=== PATIENT | female | born 1995 | race Caucasian/White ===

== ENCOUNTER 2017-05-13 15:42 | Emergency (ER) | payer MEDICAID, OTHER ==
[2017-05-13 15:43] VITALS: BMI 29.0
[2017-05-13 16:13] VITALS: O2SAT 100
--- NOTE | 2017-05-13 16:56 | ED PDOC ---
Arrival/HPI - General Chief Complaint: Abnormal Skin Integrity Time Seen by Provider: 05/13/17 16:40 Historian: Patient - History of Present Illness Narrative History of Present Illness (Text): 05/13/17 17:35 21yr old female presents today with pruritic rash to legs, chest, back and abdomen that started today. pt completed amoxicillin yesterday for throat infection while in [place]. pt states she was in [place] for the past 2 weeks. pt denies cp or sob. no abdominal pain. no nv/d/c/. no fever/chills. no sick contacts. pt denies arthralgias. denies dizziness or weakness. pt taking benadryl at home without improvement. Past Medical History - Provider Review Nursing Documentation Reviewed: Yes - Travel History Have you recently traveled outside [place] w/in the past 3 mons?: No If Yes, travel location?: [place] - Past History Past History: No Previous - Infectious Disease Hx of Infectious Diseases: None - Reproductive Menopause: No - Psychiatric Hx Depression: No Hx Emotional Abuse: No Hx Physical Abuse: No Hx Substance Use: No - Past Surgical History Past Surgical History: No Previous - Suicidal Assessment Feels Threatened In Home Enviroment: No Family/Social History - Physician Review Nursing Documentation Reviewed: Yes Family/Social History: Unknown Family HX Smoking Status: Never Smoked Hx Alcohol Use: No Hx Substance Use: No Hx Substance Use Treatment: No Allergies/Home Meds Allergies/Adverse Reactions: Allergies No Known Allergies Allergy (Verified 09/24/13 19:22) Review of Systems - Review of Systems Constitutional: absent: Fatigue, Fevers ENT: absent: Rhinorrhea, Sinus Congestion Respiratory: absent: SOB, Cough Cardiovascular: absent: Chest Pain, Palpitations Gastrointestinal: absent: Abdominal Pain, Diarrhea, Nausea, Vomiting Musculoskeletal: absent: Arthralgias, Back Pain, Neck Pain Skin: Rash, Pruritis Neurological: absent: Headache, Dizziness Psychiatric: absent: Anxiety, Depression Physical Exam Vital Signs Reviewed: Yes Vital Signs Temp Pulse Resp BP Pulse Ox 05/13/17 18:28 98.4 F 88 18 100 05/13/17 18:09 98.4 F 88 18 103/59 L 100 05/13/17 17:50 98.1 F 80 20 102/62 100 05/13/17 16:04 99.0 F 109 H 18 110/75 100 05/13/17 15:55 99.0 F 109 H 18 110/75 100 Temperature: Afebrile Blood Pressure: Normal Pulse: Tachycardic Respiratory Rate: Normal Appearance: Positive for: Well-Appearing, Non-Toxic, Comfortable Pain Distress: None Mental Status: Positive for: Alert and Oriented X 3 - Systems Exam Head: Present: Atraumatic Mouth: Present: Moist Mucous Membranes Pharnyx: Present: Normal. No: ERYTHEMA, EXUDATE, TONSILS ENLARGED, Uvular Deviation, Muffled/Hoarse Voice Neck: Present: Normal Range of Motion, Trachea Midline Respiratory/Chest: Present: Clear to Auscultation, Good Air Exchange. No: Respiratory Distress, Accessory Muscle Use Cardiovascular: Present: Regular Rate and Rhythm, Normal S1, S2. No: Murmurs Upper Extremity: Present: Normal ROM Lower Extremity: Present: Normal ROM Neurological: Present: GCS=15, Speech Normal Skin: Present: Warm, Dry, Rashes (erythematous raised plaques to chest, abdomen , back and lower legs. non tender. ) Psychiatric: Present: Alert, Oriented x 3 Medical Decision Making ED Course and Treatment: 05/13/17 17:38 Patient is nontoxic well-appearing in no distress with stable vital signs no angioedema. Lungs are clear to auscultation bilaterally there is no wheezing noted. The airway is patent benadryl 25mg pO prednisone 60mg po Pepcid 20 mg po pt with erythematous raised plaques to chest, abdomen, back and lower legs. non tender. Patient reassessment: pt non toxic well appearing; no distress. stable vitals. pt just completed amoxicillin treatment for throat infection. ? allergic reaction to amoxicillin. pt with recent travel to [place]; no arthralgias; will have patient f/u with knitting machine fixer for further eval. pt afebrile. denies pain. denies fever/chills. rash spares palms. I advised taking Benadryl every 6 hours as needed for itch as well as prednisone daily x4 days. Advised patient to follow up with primary care physician within the next 2 days and return if symptoms worsen persist or if new symptoms develop. Patient verbalizes understanding of discharge instructions and need for immediate followup. Impression :Allergic reaction, rash Benadryl every 6 hours as needed for itch Prednisone once daily x4 days Pepcid one tablet daily Follow up with the primary care physician tomorrow follow up with the knitting machine fixer within the next 2 days. Return if symptoms worsen persist or if new symptoms develop: Shortness of breath, feeling of throat closing, difficulty speaking or any other concerning symptoms develop - Medication Orders Current Medication Orders: Discontinued Medications Diphenhydramine HCl (Benadryl) 25 mg PO ONCE ONE Stop: 05/13/17 16:41 Last Admin: 05/13/17 17:00 Dose: 25 mg Famotidine (Pepcid) 20 mg PO STAT STA Stop: 05/13/17 16:41 Last Admin: 05/13/17 17:02 Dose: 20 mg Prednisone (Prednisone Tab) 60 mg PO STAT ONE Stop: 05/13/17 16:41 Last Admin: 05/13/17 17:02 Dose: 60 mg Disposition/Present on Arrival - Present on Arrival Any Indicators Present on Arrival: No History of DVT/PE: No History of Uncontrolled Diabetes: No Urinary Catheter: No History of Decub. Ulcer: No History Surgical Site Infection Following: None - Disposition Have Diagnosis and Disposition been Completed?: Yes Diagnosis: Rash Disposition: HOME/ ROUTINE Disposition Time: 16:40 Patient Plan: Discharge Condition: GOOD Discharge Instructions (ExitCare): Acute Rash (ED), General Allergic Reaction ( ED) Additional Instructions: Benadryl every 6 hours as needed for itch Prednisone once daily x4 days Pepcid one tablet daily Follow up with the primary care physician within the next 2 days. Follow up with the knitting machine fixer within the next 2 days. Return if symptoms worsen persist or if new symptoms develop: Shortness of breath, feeling of throat closing, difficulty speaking or any other concerning symptoms develop Prescriptions: DiphenhydrAMINE [Benadryl] 25 mg PO Q6H #20 cap Famotidine [Pepcid] 20 mg PO DAILY #30 tab predniSONE [predniSONE Tab] 3 tab PO DAILY #12 tab Referrals: Ander Kim MD [Primary Care Provider] - Follow up with primary Ronan Tavares MD [Staff Provider] - Follow up with primary Aga Fernandes MD [Staff Provider] - Follow up with primary Forms: [employer] ([place])
[2017-05-13 18:09] VITALS: BP 103/59; PULSE 88; RESP 18; TEMP 98.4
== END 2017-05-13 18:20 | disposition home or self-care (01) ==
LOC: ED 15:42
DX: R21 Rash and other nonspecific skin eruption (principal)